=== PATIENT | female | born 1965 | race Caucasian/White ===

== ENCOUNTER 2018-10-23 11:04 | Inpatient (IN) | payer MEDICAID ==
[~2018-10-23] VITALS: Ht 152.4 cm; Wt 64.1 kg
[2018-10-23 11:19] VITALS: Ht 152.4 cm; Wt 64.1 kg
[2018-10-23 12:45] LABS: BASOPHIL % 0.3 % (0-2); PLATELET COUNT 291 x10^3mcL (130-400); RED CELL DISTRIBUTION WIDTH 13.7 % (11.5-14.5)
[2018-10-23 13:01] LABS: microscopic required? YES; urine erythrocyte TRACE (NEGATIVE)
[2018-10-23 13:05] LABS: CALCIUM 8.7 mg/dL (8.5-10.1); CARBON DIOXIDE 28.5 mmol/L (21-32); CHLORIDE SERUM 107 mmol/L (98-107); CREATININE SERUM 0.5 mg/dL (0.6-1.0); GFR1 > 60 mL/min; GLUCOSE SERUM 90 mg/dL (74-106); POTASSIUM SERUM 3.7 mmol/L (3.5-5.1); SODIUM SERUM 143 mmol/L (136-145)
[2018-10-23 13:13] LABS: ALBUMIN 3.5 g/dL (3.4-5.0); ALKALINE PHOSPHATASE 82 U/L (46-116); ALT/SGPT 56 U/L (14-59); AST/SGOT 17 U/L (15-37); BILIRUBIN TOTAL 0.34 mg/dL (0.20-1.00); CHOLESTEROL 167 mg/dL (<200); LIPASE 139 IU/L (73-393); TOTAL PROTEIN, SERUM 7.4 g/dL (6.4-8.2); TRIGLYCERIDES 118 mg/dL (<150)
[2018-10-23 13:14] LABS: CHOLESTEROL/HDL RATIO 2.7; HDL CHOLESTEROL 62 mg/dL (40-60)
[2018-10-23 13:16] LABS: T3 TOTAL 1.24 ng/mL
[2018-10-23 13:21] LABS: FREE T4 0.97 ng/dL (0.76-1.46); FREE THYROXINE INDEX 2.5 ug/dL (1.4-4.5); T4(THYROXINE) 8.6 ug/dL (4.7-13.3)
[2018-10-23 16:39] VITALS: BP 154/79
[2018-10-23 16:48] LABS: MAGNESIUM 2.1 mg/dL (1.8-2.4); PHOSPHOROUS 4.3 mg/dL (2.5-4.9)
[2018-10-23 16:54] VITALS: BP 154/79
[2018-10-23 22:30] VITALS: BP 113/62
[2018-10-24 00:35] LABS: BASOPHIL % 0.1 % (0-2); PLATELET COUNT 289 x10^3mcL (130-400); RED CELL DISTRIBUTION WIDTH 13.7 % (11.5-14.5)
[2018-10-24 00:46] LABS: CALCIUM 8.6 mg/dL (8.5-10.1); CARBON DIOXIDE 25.8 mmol/L (21-32); CHLORIDE SERUM 105 mmol/L (98-107); CREATININE SERUM 0.7 mg/dL (0.6-1.0); GFR1 > 60 mL/min; GLUCOSE SERUM 135 mg/dL (74-106); POTASSIUM SERUM 3.7 mmol/L (3.5-5.1); SODIUM SERUM 139 mmol/L (136-145)
[2018-10-24 02:41] VITALS: BP 116/64
[2018-10-24 05:06] VITALS: BP 118/67
[2018-10-24 08:30] VITALS: BP 108/60
[2018-10-24 17:00] VITALS: BP 100/64
[2018-10-24 20:44] VITALS: BP 137/75
[2018-10-25 04:44] VITALS: BP 140/69
[2018-10-25 07:00] LABS: BASOPHIL % 1.3 % (0-2); RED CELL DISTRIBUTION WIDTH 13.9 % (11.5-14.5)
[2018-10-25 07:16] LABS: CALCIUM 8.3 mg/dL (8.5-10.1); CARBON DIOXIDE 25.8 mmol/L (21-32); CHLORIDE SERUM 107 mmol/L (98-107); CREATININE SERUM 0.8 mg/dL (0.6-1.0); GFR1 > 60 mL/min; GLUCOSE SERUM 110 mg/dL (74-106); MAGNESIUM 2.1 mg/dL (1.8-2.4); PHOSPHOROUS 3.4 mg/dL (2.5-4.9); POTASSIUM SERUM 3.6 mmol/L (3.5-5.1); SODIUM SERUM 142 mmol/L (136-145)
[2018-10-25 08:04] LABS: PLATELET COUNT 260 x10^3mcL (130-400)
[2018-10-25 10:09] VITALS: BP 140/47
[2018-10-25 11:45] VITALS: BP 140/47
[2018-10-25 11:51] VITALS: BP 140/47
== END 2018-10-25 14:13 | disposition home or self-care (01) | DRG 228 ==
LOC: ED 11:04 → MU 15:40
PROVIDERS: General Practice; Specialist; Surgery
PROC: 0DBU0ZZ Excision of Omentum, Open Approach (ICD-10-PCS; 2018-10-23)
PROC: 0YQ70ZZ Repair Right Femoral Region, Open Approach (ICD-10-PCS; principal; 2018-10-23 20:00)
DX: K41.30 Unilateral femoral hernia, with obstruction, without gangrene, not specified as recurrent (principal); D72.829 Elevated white blood cell count, unspecified; Z68.27 Body mass index [BMI] 27.0-27.9, adult
CPT/HCPCS: 83880; 84439; J0330; J0694; J1170; J2405; J2704; J2710; J3010; J3490; J7030; J7120; Q9967